=== PATIENT | male | born 1960 | race Caucasian/White ===

== ENCOUNTER 2023-09-11 16:48 | Emergency (ER) | payer BC, MEDICAID ==
[~2023-09-11] VITALS: Ht 177.8 cm; Wt 92.2 kg
[2023-09-11 16:49] VITALS: BP 144/90; PULSE 84; RESP 16; TEMP 98.2; O2SAT 98
== END 2023-09-11 18:36 | disposition home or self-care (01) ==
LOC: ER 16:49
DX: S13.4XXA Sprain of ligaments of cervical spine, initial encounter (principal); S09.90XA Unspecified injury of head, initial encounter; W19.XXXA Unspecified fall, initial encounter; Y93.89 Activity, other specified; Y92.89 Other specified places as the place of occurrence of the external cause; Y99.8 Other external cause status
CPT/HCPCS: 70450; 72125; 99284

== ENCOUNTER → 2023-12-08 | Outpatient (CLI) | payer BC, MEDICAID | END | disposition home or self-care (01) | LOC: RAD 16:58 | DX: I44.4 Left anterior fascicular block (principal); R94.31 Abnormal electrocardiogram [ECG] [EKG]; F11.20 Opioid dependence, uncomplicated | CPT/HCPCS: 93005 ==

== ENCOUNTER → 2023-12-12 | Outpatient (CLI) | payer BC, MEDICAID | END | disposition home or self-care (01) | LOC: RAD 09:56 | PROVIDERS: ATTEND Physician Assistant | DX: F11.20 Opioid dependence, uncomplicated (principal) | CPT/HCPCS: 93005 ==

== ENCOUNTER 2024-01-04 12:19 | Emergency (ER) | payer BC, MEDICAID ==
[~2024-01-04] VITALS: Ht 180.3 cm; Wt 87.3 kg
[2024-01-04 14:22] LABS: BASOPHILS % (AUTO) 0.7 % (0-1); EOSINOPHILS # (AUTO) 0.1 X10'3 (0-0.9); EOSINOPHILS % (AUTO) 2.1 % (0-6); HEMATOCRIT 39.4 % (42.0-52.0); HEMOGLOBIN 13.3 g/dl (14.0-17.9); LYMPHOCYTES # (AUTO) 1.7 X10'3 (1.1-4.8); LYMPHOCYTES % (AUTO) 25.2 % (21-51); MEAN CORPUSCULAR HEMOGLOBIN 31.2 PG (27.0-31.0); MEAN CORPUSCULAR HGB CONC 33.7 g/dL (33.0-36.5); MEAN CORPUSCULAR VOLUME 92.4 FL (78-98); MONOCYTES # (AUTO) 0.6 X10'3 (0-0.9); MONOCYTES % (AUTO) 8.8 % (2-12); NEUTROPHILS # (AUTO) 4.2 X10'3 (1.8-7.7); NEUTROPHILS % (AUTO) 63.2 % (42-75); PLATELET COUNT 120 X10'3 (140-440); RED BLOOD COUNT 4.27 X10'6 (4.70-6.10); RED CELL DISTRIBUTION WIDTH 14.3 % (11.5-14.5); WHITE BLOOD COUNT 6.6 X10'3 (4.5-11.0)
[2024-01-04 14:29] LABS: ALBUMIN 3.7 G/DL (3.4-5.0); ANION GAP 6 (8-16); BLOOD UREA NITROGEN 16 MG/DL (7-18); BUN/CREATININE RATIO 14.8 (10.0-20.0); CALCIUM 9.1 MG/DL (8.5-10.1); CHLORIDE 103 MMOL/L (99-107); CREATININE 1.08 MG/DL (0.60-1.10); GLUCOSE 108 MG/DL (70-104); SODIUM 138 MMOL/L (135-145); TOTAL CARBON DIOXIDE 29.3 MMOL/L (24-32); eCRCL 75 ML/MIN; eGFR 69 ML/MIN
[2024-01-04] MEDS: ALPRAZolam 0.5mg tablet PO ONE (17:07)
[2024-01-04] MEDS: amox tr/potassium clavulanate 875/125mg TAB PO ONE (17:07)
[2024-01-04] MEDS ORDERED: HYDR-3973 PO (17:12)
[2024-01-04] MEDS ORDERED: ALPR2TAB PO (17:12)
[2024-01-04] MEDS ORDERED: AMOX-117 PO (17:12)
[2024-01-04 17:17] VITALS: BP 140/85; PULSE 69; RESP 15; TEMP 98.6; O2SAT 97
== END 2024-01-04 17:19 | disposition home or self-care (01) ==
LOC: ER 12:20
DX: G89.29 Other chronic pain (principal); M79.605 Pain in left leg; M79.604 Pain in right leg; F19.239 Other psychoactive substance dependence with withdrawal, unspecified; Z79.2 Long term (current) use of antibiotics
CPT/HCPCS: 36415; 80048; 85025; 99284

== ENCOUNTER 2024-02-11 13:20 | Emergency (ER) | payer BC, MEDICAID ==
[~2024-02-11] VITALS: Ht 177.8 cm; Wt 81.8 kg
[~2024-02-11 13:20] MED LIST: ALPR2TAB PO
[2024-02-11] MEDS ORDERED: ALPR-624 PO (17:06)
[2024-02-11 17:26] VITALS: BP 124/63; PULSE 64; RESP 16; TEMP 98; O2SAT 98
== END 2024-02-11 17:30 | disposition home or self-care (01) ==
LOC: ER 13:21
DX: F41.8 Other specified anxiety disorders (principal); Z79.899 Other long term (current) drug therapy
CPT/HCPCS: 99281

== ENCOUNTER 2024-02-26 13:41 | Emergency (ER) | payer BC, MEDICAID ==
[~2024-02-26] VITALS: Ht 177.8 cm; Wt 87.5 kg
[~2024-02-26 13:41] MED LIST changes: +ALPR-624 PO
[2024-02-26] MEDS: tetanus & diphtheria toxoid (Td) vaccine 0.5ml IMVAC ONE (15:20)
[2024-02-26] MEDS: LIDOcaine 1% W/epiNEPHrine 1:100,000 20ml vial SQ ONE (16:01)
[2024-02-26 17:48] VITALS: BP 178/70; PULSE 70; RESP 17; TEMP 98.1; O2SAT 98
== END 2024-02-26 17:50 | disposition home or self-care (01) ==
LOC: ER 13:42
DX: S51.011A Laceration without foreign body of right elbow, initial encounter (principal); M25.521 Pain in right elbow; F41.9 Anxiety disorder, unspecified; W01.0XXA Fall on same level from slipping, tripping and stumbling without subsequent striking against object, initial encounter; Y93.89 Activity, other specified; Y92.89 Other specified places as the place of occurrence of the external cause; Y99.8 Other external cause status
CPT/HCPCS: 12002; 99282; A6222; 90715; A6258; A6449

== ENCOUNTER 2024-03-01 15:49 | Emergency (ER) | payer BC, MEDICAID ==
[~2024-03-01] VITALS: Ht 177.8 cm; Wt 86.3 kg
[2024-03-01 15:52] VITALS: BP 180/112; PULSE 94; TEMP 98.6
[2024-03-01] MEDS ORDERED: HYDR-3965 PO (16:00)
[2024-03-01] MEDS ORDERED: SULF1TAB49 PO (16:00)
[2024-03-01] MEDS: CefTRIAXone 1000mg IM Kit (w/lidocaine diluent) IM ONE (16:10)
[2024-03-01] MEDS: ketorolac trometh 30MG/ML vial 30 MG/ML VIAL IM ONE (16:10)
[2024-03-01 16:13] VITALS: RESP 18; O2SAT 98
== END 2024-03-01 16:15 | disposition home or self-care (01) ==
LOC: ER 15:50
DX: L03.311 Cellulitis of abdominal wall (principal); F41.9 Anxiety disorder, unspecified; Z79.899 Other long term (current) drug therapy
CPT/HCPCS: 96372; 99284; J0696; J1885

== ENCOUNTER 2024-10-24 21:50 | Emergency (ER) | payer MEDICARE, MEDICAID ==
[~2024-10-24] VITALS: Ht 177.8 cm; Wt 69.5 kg
[2024-10-24 21:52] VITALS: TEMP 96.8
[2024-10-24] MEDS: ketorolac trometh 30MG/ML vial 30 MG/ML VIAL IM ONE (22:06)
--- NOTE | 2024-10-24 22:18 | Physician Documentation ---
History of Present Illness ~ Chief Complaint: Laceration Stated Complaint: LACERATION Time Seen by MD: 22:09 Primary Medical Doctor: None HPI The emergency room with head laceration to his lateral face that happened while he was cleaning the garage. Wooden shelf in him on the side of the face. No loss of consciousness no blood thinners. Unknown tetanus Tetanus Within 5 Years: Yes (mar 2023) Medication Reconciliation Allergies: Coded Allergies: No Known Allergies (Unverified , 10/24/24) Scheduled PRN Alprazolam (Alprazolam), 1 TAB PO Q12H PRN PRN for anxiety Alprazolam* (Xanax*), 1 TAB PO Q12H PRN PRN for anxiety Past Medical History Past Medical History: Anxiety Review of Systems ROS All review of systems negative except as per HPI Physical Exam Vital Signs: Temperature: 96.8, Source: Temporal, Heart Rate: 75, Respiratory Rate: 15, BP: 146/85, Pulse Oximetry: 98, Weight: 69.480 Physical Exam General: Patient is awake, alert, oriented x4 in no acute distress and well appearing.~ Head: Normocephalic with star-shaped full-thickness laceration two right lateral face, full-thickness, bleeding controlled. Eyes: Conjunctival normal. EOMI. PERRL. ENT: Mucous membranes moist. No childress signs, no raccoon eyes, no hemotympanum, no rhinorrhea Neck: Supple, trachea is midline. No cervical midline tenderness Chest: Clear to auscultation bilaterally without rales, rhonchi, or wheezes. There is no accessory muscle use or retractions. Cardiac: RRR without murmurs, gallops, or rubs. Procedures Laceration/Wound Repair Laceration : Anesthesia: Lidocaine, Lidocaine w/ Epi Undermining: none Margins: revised Suture Size/Type: 4-0 Number of Superficial Sutures: 11 Dressing Applied: simple, bacitracin Tolerated Procedure Well?: yes, no complications Progress Results/Orders Results/Orders Orders - DNENYS CASTILLO MD Mandible Complete 4views (10/24/24 22:24) Dressing Orders (10/24/24 22:25) Completed Orders - DENNYS CASTILLO MD Tetanus/Pertuss/Diph Acell/Pf (Boostrix (10/24/24 22:25) Bacitracin Ointment (Bacitracin Ointment (10/24/24 22:25) Medications Received in ER Medications (Trade) Dose Ordered Sig/Emma Route PRN Reason Start Time Stop Time Status Last Admin Dose Admin (Boostrix vaccine syringe) 0.5 ml ONCE ONCE IMVAC 10/24/24 22:25 10/24/24 22:26 DC 10/24/24 22:32 0.5 ML (bacitracin ointment) 1 applic ONCE ONCE TP 10/24/24 22:25 10/24/24 22:26 DC 10/24/24 22:33 1 APPLIC Vital Signs 10/24/24 21:52 Temp 96.8 Pulse 75 Resp 15 B/P (MAP) 146/85 Pulse Ox 98 EKG/XRAY/CT/US/VASC/MRI Bone/Soft Tissue X-Ray (Spine) : Additional Comment Mandibular series it was negative for fractures dislocations or foreign bodies Medical Decision Making Findings Patient presented to the emergency room with laceration to right head. Differentials include but are not limited to laceration, epidural bleed, subdural bleed, intraparenchymal bleed, soft tissue injury. Given physical exam which is reassuring he had not feel patient requires CT scan. Patient was status post laceration repair and tolerated procedure well. Tetanus made to be up-to-date. Wound care discussed as well as the need to have sutures removed. Departure Disposition: 01 HOME / SELF CARE / HOMELESS Impression: Primary Impression: Laceration Condition: Stable Discharge Instructions: Laceration Care, Adult, [id number] Additional Instructions: Have sutures removed at any medical care facility in 5-7 days Referrals: NO PRIMARY CARE PROVIDER (PCP) Education Educated: Patient Educated regarding: diagnosis, treatment, need for follow up Signature Scribe Signature: No scribe Attestation: The note accurately reflects work and decisions made by me.Dennys Castillo MD 10/24/24 22:18 DENNYS CASTILLO MD Oct 24, 2024 22:18 LENNY PRICE NP Oct 24, 2024 22:26
[2024-10-24] MEDS: TETanus/Pertussis (Acell)/Diphther VAC/PF (Tdap-Adult) 0.5ml syringe IMVAC ONE (22:32)
[2024-10-24] MEDS: bacitracin 15gm ointment TP ONE (22:33)
[2024-10-24 23:14] VITALS: BP 146/83; PULSE 76; RESP 14; O2SAT 98
--- NOTE | 2024-10-24 23:20 | RADIOLOGY REPORT ---
DI MANDIBLE COMPLETE 4VIEWS, HISTORY: right sided pain TECHNICAL DATA: Frontal, lateral and bilateral oblique views were obtained of the mandible. COMPARISON: None FINDINGS: No fracture or focal bone abnormality is demonstrated. The condylar and coronoid processes appear int act. The rami, angle and mandibular bodies appear normal. No fluid levels are demonstrated in the vis ualized paranasal sinuses. IMPRESSION: No obvious osseous abnormalities.
== END 2024-10-24 23:23 | disposition home or self-care (01) ==
LOC: ER 21:50
DX: S01.81XA Laceration without foreign body of other part of head, initial encounter (principal); F41.9 Anxiety disorder, unspecified; X58.XXXA Exposure to other specified factors, initial encounter; Y93.89 Activity, other specified; Y92.89 Other specified places as the place of occurrence of the external cause; Y99.8 Other external cause status
CPT/HCPCS: 12011; 70110; 90471; 90715; 99283

== ENCOUNTER 2024-12-02 17:33 | Emergency (ER) | payer MEDICARE, MEDICAID ==
[~2024-12-02] VITALS: Ht 177.8 cm; Wt 83.9 kg
[2024-12-02 18:15] VITALS: BP 131/90; PULSE 86; RESP 12; TEMP 97.6; O2SAT 95
--- NOTE | 2024-12-02 20:28 | Physician Documentation ---
History of Present Illness ~ Chief Complaint: Bite-insect Stated Complaint: "LUMP ON BACK OF HEAD AND NODULES IN MY NECK" Primary Medical Doctor: None HPI This is 64-year-old male presents with a area of pain and swelling to the posterior of his scalp, patient additionally reports area of tenderness to his right lateral neck Tetanus within 5 years?: Yes (mar 2023) Medication Reconciliation Allergies: Coded Allergies: No Known Allergies (Unverified , 12/02/24) Scheduled PRN Alprazolam (Alprazolam), 1 TAB PO Q12H PRN PRN for anxiety Alprazolam* (Xanax*), 1 TAB PO Q12H PRN PRN for anxiety Past Medical History Past Medical History: Anxiety Review of Systems ROS As stated above in the HPI, otherwise all systems are reviewed and negative. Physical Exam Vital Signs: Temperature: 97.6, Source: Temporal, Heart Rate: 86, Respiratory Rate: 12, BP: 131/90, Pulse Oximetry: 95, Weight: 83.900 Oxygen Flow Rate: 0 Physical Exam VITALS: Reviewed and as above. GENERAL: Alert, nontoxic appearing, no apparent distress. HEENT: Right-sided postauricular lymphadenopathy RESPIRATORY: No increased work of breathing, no respiratory distress, speaking in full clear sentences SKIN: 1-1/2 cm by 2-1/2 cm area of erythema and swelling to posterior scalp tender to palpation Progress Results/Orders Results/Orders Orders - VERONICA GUERRA Laceration/I&D Tray Set Up (12/02/24 20:28) Completed Orders - VERONICA GUERRA Lidocaine 1% W/Epi 1:100,000 (Xylocaine (12/02/24 20:30) Medical Decision Making Findings MSE performed in triage and patient returned to ED lobby by nursing staff to await an available ED room, patient appears to have eloped from lobby Differential Dx:Considerations: Include: Abrasion, Allergic reaction, Anaphylaxis, Cellulitis, Punture wound, Retained foreign body, Urticaria Departure Disposition: 07 LEFT AWOL/ELOPED Impression: Primary Impression: Skin infection Referrals: NO PRIMARY CARE PROVIDER (PCP) Signature Scribe Signature: No scribe Attestation: The note accurately reflects work and decisions made by me.YINA Tran 12/09/24 13:47 VERONICA GUERRA Dec 02, 2024 20:28
[2024-12-02] MEDS ORDERED: LIDOcaine 1% W/epiNEPHrine 1:100,000 20ml vial IJ ONE (20:30)
== END 2024-12-03 00:54 | disposition left against medical advice (07) ==
LOC: ER 17:34
DX: S00.06XA Insect bite (nonvenomous) of scalp, initial encounter (principal); M54.2 Cervicalgia; Z53.21 Procedure and treatment not carried out due to patient leaving prior to being seen by health care provider; W57.XXXA Bitten or stung by nonvenomous insect and other nonvenomous arthropods, initial encounter; Y93.89 Activity, other specified; Y92.89 Other specified places as the place of occurrence of the external cause; Y99.8 Other external cause status
CPT/HCPCS: 99281

== ENCOUNTER 2024-12-03 02:39 | Emergency (ER) | payer MEDICARE, MEDICAID ==
[~2024-12-03] VITALS: Ht 177.8 cm; Wt 84.1 kg
[2024-12-03 02:45] VITALS: BP 156/99; PULSE 93; RESP 16; TEMP 98; O2SAT 98
== END 2024-12-03 04:42 | disposition left against medical advice (07) ==
LOC: ER 02:39
DX: R22.2 Localized swelling, mass and lump, trunk (principal); Z53.21 Procedure and treatment not carried out due to patient leaving prior to being seen by health care provider